=== PATIENT | male | born 1945 | race Caucasian/White ===

== ENCOUNTER 2018-07-30 10:04 | Day surgery (SDC) | payer MEDICARE, SELFPAY ==
[2018-07-30 10:29] VITALS: BP 106/57; PULSE 75; RESP 16; TEMP 36.6; O2SAT 95; BMI 23.6
[2018-07-30] MEDS: Tetracaine 0.5% Ophthalmic Bottle 1 DRP (11:50)
--- NOTE | 2018-07-30 12:20 | PCM.IMDPSTOP ---
Problem List (1) Cataract of left eye Status: Acute Qualifiers: Cataract type: age-related Age-related cataract type: combined forms Qualified Code(s): H25.812 - Combined forms of age-related cataract, left eye Immediate Post-Op Note Date of Procedure: 07/30/18 Primary Surgeon/Physician: Erika Story MD advice clerk: Annelise Blanton Post-Operative Diagnosis: same Surgery/Procedure Performed:: PEM IOL OS Description of Surgical Findings:: cataract left eye Estimated Blood Loss: none Specimen's removed: none Type of Anesthesia:: MAC and Topical Anesth
[2018-07-30 12:23] VITALS: BP 104/64; BP 106/57; PULSE 65; RESP 16; TEMP 36.4; O2SAT 93
--- NOTE | 2018-07-30 12:24 | OP.PN_ITS ---
Problem List (1) Cataract of left eye Status: Acute Qualifiers: Cataract type: age-related Age-related cataract type: combined forms Qualified Code(s): H25.812 - Combined forms of age-related cataract, left eye Immediate Post-Op Note Date of Procedure: 07/30/18 Primary Surgeon/Physician: Erika Story MD large animal veterinarian: Annelise Blanton Post-Operative Diagnosis: same Surgery/Procedure Performed:: PEM IOL OS Description of Surgical Findings:: cataract left eye Estimated Blood Loss: none Specimen's removed: none Type of Anesthesia:: MAC and Topical Anesth
--- NOTE | 2018-07-30 12:26 | DCINST_ITS ---
Allergies/Adverse Reactions: Allergies Sulfa (Sulfonamide Antibiotics) Allergy (Verified 07/23/18 09:54) Itching Medications to take at Discharge Escitalopram Oxalate [Lexapro] 20 mg PO DAILY 05/08/16 Lisinopril [Zestril] 5 mg PO DAILY 05/08/16 Metoprolol Succinate 50 mg PO DAILY 05/08/16 Simvastatin [Zocor] 20 mg PO QHS 05/08/16 Aspirin E.C. [Ecotrin] 81 mg PO DAILY@0800 07/23/18 Ipratropium/Albuterol Respimat [Combivent Respimat Inhal [place]] 1 puff INHALATION PRN PRN 07/23/18 Umeclidinium Brm/Vilanterol Tr [Anoro Ellipta 62.5-25 Mcg INH] 1 each IH DAILY 07/23/18 Cataract Instructions: -Take a pain reliever such as Tylenol, Aspirin or Ibuprofen if needed for eye aching or pain. If this is not enough relief for you pain, call your doctor (or the doctor commercial solar sales consultant), even at night. -You are scheduled for a follow-up appointment at [facility] the day after surgery. You should have someone drive you. -Transient pain and irritation are due to the incision that was made at the time of surgery and do not indicate any trouble. Our office numbers are . If there is no answer, or if it is after our normal business hours, call your surgeon. My home phone number is: Dr. Erika Story INSTRUCTIONS FOLLOWING TOPICAL ANESTHETIC CATARACT SURGERY Protect operated eye with glasses or metal shield at all times. Instill one drop of Polytrim (or other antibiotic drop), one drop of Prednisolone and one drop of Acular in the operated eye four times a day (breakfast, lunch, dinner, and bedtime) until the doctor tells you to quit or decrease them. Wait 3-5 minutes between each drop. Please begin these immediately upon arriving at home. if your surgery is in t he afternoon, try to use the drops at least three more times the day of surgery and again the [facility] morning before your appointment. INSTRUCTIONS FOLLOWING RETROBULBAR CATARACT SURGERY Keep the eye patch and metal shield on until you see your surgeon the day after surgery - these will be removed in the office that day. Do not drive while the patch is on your eye. You will be instructed about the use of drops for the operated eye at that visit. Primary Care Physician: Negro Lin MD [Primary Care Provider] -
--- NOTE | 2018-07-30 12:26 | PCM.OP.BLANK ---
Problem List (1) Cataract of left eye Status: Acute Qualifiers: Cataract type: age-related Age-related cataract type: combined forms Qualified Code(s): H25.812 - Combined forms of age-related cataract, left eye Operative Report Date of Procedure: 07/30/18 Preoperative Diagnosis: Cataract Left Eye Postoperative Diagnosis: Same Procedure: Cataract Extraction via phacoemulsification with intraocular lens implant Left Eye Anesthesia: Mac/topical Complications: none Estimated Blood Loss: none Indications for procedure: This is a 73 year old male with history of worsening vision in the left eye secondary to cataract. After discussion of the risks, benefits, and alternatives procedure the patient agreed to proceed with cataract extraction of the left eye. Description of procedure: The patient was brought to the operative room where a time out was performed prior to the start of the procedure. Anesthesia team induced light sedation, and the eye was prepped and draped in the normal sterile fashion for eye surgery. A connor blade knife was used to create a paracentesis incision. Preservative free lidocaine followed by viscoelastic was introduced into the anterior chamber. A keratome was used to create a clear corneal biplanar incision at the temporal limbus. A cystotome was used to begin the capsulorhexis, which was completed in a continuous curvilinear fashion using the capsulorhexis forceps. BSS on a ragland cannula was used to hydrate beneath the lens capsule until the lens was noted to be freely mobile in the capsular bag. Phacoemulsification was used to remove the lens in a divide and conquer technique. Irrigation and aspiration was used to remove the remaining cortical material. The capsular bag was inflated with provisc, and a tecnis PCBOO 21.5 diopter lens was placed in the capsular bag and adjusted using a neo hook. The remaining viscoelastic material was removed. The wounds were hydrated and noted to be watertight with the use of a wexcell sponge. The patient was taken to the recovery room in a stable condition with instructions to follow up in the clinic for the scheduled postoperative visit.
[2018-07-30 12:28] VITALS: BP 106/57; BP 124/59; PULSE 63; RESP 16; O2SAT 93
[2018-07-30 12:33] VITALS: BP 106/57; BP 129/63; PULSE 63; RESP 16; O2SAT 94
[2018-07-30 12:38] VITALS: BP 106/57; BP 126/61; PULSE 63; RESP 16; O2SAT 93
== END 2018-07-30 13:14 | disposition home or self-care (01) ==
LOC: SDC 10:05 → AC 10:11
PROVIDERS: Family Provider Family Medicine; PCP Family Medicine; Referring Provider Ophthalmology; Visit Provider Ophthalmology
PROC: (CPT 66984; principal; 2018-07-30 11:20)
DX: H25.812 Combined forms of age-related cataract, left eye (principal); J44.9 Chronic obstructive pulmonary disease, unspecified; I10 Essential (primary) hypertension; E78.5 Hyperlipidemia, unspecified; F32.5 Major depressive disorder, single episode, in full remission; F17.200 Nicotine dependence, unspecified, uncomplicated; I25.2 Old myocardial infarction; Z79.82 Long term (current) use of aspirin; Z79.899 Other long term (current) drug therapy; Z95.5 Presence of coronary angioplasty implant and graft
CPT/HCPCS: 66984; J7120